=== PATIENT | female | born 1975 | race Caucasian/White ===

== ENCOUNTER 2017-01-11 07:48 | Day surgery (SDC) | payer BC ==
[2017-01-05 09:19] LABS: HEMATOCRIT 44.7 % (36.0-48.0); HEMOGLOBIN 15.2 g/dL (12.0-16.0)
--- NOTE | ~2017-01-11 | OP ---
Record Of Operation [facility] [address] [place]. [address] NAME: HIEN ECHAVARRIA : 71 STATUS : [facility]#: [id number] AGE: 41 ADM/REG DATE : 01/11/17 MR#: [id number] REPORT SERV DATE: 01/11/17 DICTATED BY: MARGARET ESPINOZA DATE: 01/11/17 REPORT STATUS : Draft TRANSCRIBED BY: MODL DATE: 01/11/17 DATE OF PROCEDURE: 01/11/2017 PREOPERATIVE DIAGNOSES: 1. Left cholesteatoma. 2. Left chronic otitis media. POSTOPERATIVE DIAGNOSES: 1. Left cholesteatoma. 2. Left chronic otitis media. PROCEDURES: 1. Left modified radical tympanomastoidectomy, Bondy type IV cholesteatoma. 2. NIM monitoring of cranial nerve 7. SURGEON: Margaret Espinoza M.D. ANESTHESIA: General. COMPLICATIONS: No complications. COUNTS: All counts were correct following the procedure. ESTIMATED BLOOD LOSS: 25 mL. PREOPERATIVE INFORMED CONSENT: We discussed the risks and benefits of surgery to include, but not limited to bleeding, infection, possible CSF leak, possible facial nerve injury resulting in temporary or permanent deficits, possible hearing loss including total deafness, possible recurrence of the cholesteatoma, possible recurrence requiring revision surgery, possible postoperative taste distortion, and consent is on the chart. PROCEDURE IN DETAIL: The patient was brought to the operating suite, placed on the operating room table in the supine position. General endotracheal anesthesia was initiated without incident. Left ear was cleaned and prepped in usual sterile fashion. Following this, postauricular region of the ear canal and tragus were all injected with approximately 6 mL of 1% lidocaine with 1:100,000 epinephrine for hemostasis. Following this through the ear canal, a standard tympanomeatal flap was raised from the 6 o'clock to 12 o'clock position. There was noted a large bulging area of cholesteatoma in the posterior superior aspect of the ear canal. Following lifting the tympanomeatal flap, the cholesteatoma sac was encountered. The tympanomeatal flap was lifted inferiorly and there middle ear space was entered inferiorly and then dissecting superiorly towards the ossicular chain. There was noted be dense scarring in as well as cholesteatoma obstructing the view of the ossicular chain. At this point, it was decided that we convert over to the postauricular approach for better access. A 15 blade scalpel was used to make an incision in the postauricular crease and using Record Of Operation [facility] [address] [place]. [address] NAME: HIEN ECHAVARRIA : 71 STATUS : [facility]#: [id number] AGE: 41 ADM/REG DATE : 01/11/17 MR#: [id number] REPORT SERV DATE: 01/11/17 DICTATED BY: MARGARET ESPINOZA DATE: 01/11/17 REPORT STATUS : Draft TRANSCRIBED BY: MODArabella DATE: 01/11/17 electrocautery sharp dissection was carried out down to the subcutaneous tissues and skin flaps were raised posteriorly as well as anteriorly to the posterior aspect of the ear canal then a prior graft had been obtained from the temporalis, so the temporalis fascia was not available. So, then a T-shaped incision was made in the mastoid fascia. Then, using a Lempert elevator the mastoid fascia was dissected off the underlying mastoid bone and posterior ear canal connecting with the previous tympanomeatal flap incision and self retaining retractors placed in the wound and then using a 3-mm sangita jesus, the atticotomy that already been created by the cholesteatoma was enlarged as noted to be there is already defect in the low lying tegmen in the lateral aspect of the mastoid as well as dissecting medially there was noted to be a superior defect of the tegmen. In a systematic fashion, the cholesteatoma was removed. Piecemeal measured extended significantly back through the antrum into the mastoid cavity. This sequestrum was followed posteriorly using a 3-mm sangita bur. Once the posterior extent of the cholesteatoma had been reached and completely cleared following anteriorly using the NIM stimulator, the facial nerve was identified and its tympanic segment appeared to be covered by bone. There was still a remnant left of the head of the malleus as well as the body of the incus, but it was significantly eroded, that was noted to be fixed and adherent to the surrounding bony structures was left in place. There was noted to be extensive fibrosis and scarring around the chorda tympani nerve was carefully teased away toward the fibrous tissue and scarring was carefully teased away from the chorda tympani nerve using a Parham needle. Once the entire mastoid cavity been extirpated of cholesteatoma, the graft made of lyophilized porcine dura was obtained this was cut to size and was a bleed down into the mastoid cavity and draped over the dural defect. The dural defects as well as draped over the mastoid defect then the tympanomeatal flap was laid back down into its anatomic position. Then the lateral aspect of the pars tensa as well as the graft were covered with Gelfoam out to the lateral aspect of the ear canal and attention was taken to the meatus for meatoplasty. 15 blade scalpel used to make an incision at the 1 o'clock and the 5 o'clock position of the ear canal and then this was dissected posteriorly where a generous meatoplasty was performed using a 15 blade scalpel and curved iris scissors. The mastoid fascia was reapproximated using 3-0 Vicryl followed by meatoplasty skin flap was sutured to the subcutaneous tissues. The postauricular incision was closed using 3-0 Vicryl as well as 3-0 chromic followed by filling of the mastoid cavity using further Gelfoam followed by bacitracin and a standard mastoid dressing. The patient was then awakened from anesthesia, extubated, and taken to the recovery room in stable condition. MALGORZATA/RYLAND Margaret Espinoza M.D. / [id number] CC: Margaret Espinoza M.D. Record Of Operation [address] [address] NAME: HIEN ECHAVARRIA : 71 STATUS : [facility] PAT#: [id number] AGE: 41 ADM/REG DATE : 01/11/17 MR#: [id number] REPORT SERV DATE: 01/11/17 DICTATED BY: MARGARET ESPINOZA DATE: 01/11/17 REPORT STATUS : Draft TRANSCRIBED BY: ROSAL DATE: 01/11/17 Bahman Worley M.D.
[~2017-01-11 07:48] MED LIST: ADVIL PO; CLARIT10 PO; ESTRACE; ESTRADIOL1 MG PO; T PO
== END 2017-01-11 19:10 | disposition home or self-care (01) ==
LOC: SDC 07:48
PROVIDERS: Otolaryngology
PROC: 0NR607Z Replacement of Left Temporal Bone with Autologous Tissue Substitute, Open Approach (ICD-10-PCS; principal; 2017-01-11 09:30)
DX: H60.42 Cholesteatoma of left external ear (principal); H66.92 Otitis media, unspecified, left ear; I95.9 Hypotension, unspecified; E78.5 Hyperlipidemia, unspecified; E78.00 Pure hypercholesterolemia, unspecified; G43.809 Other migraine, not intractable, without status migrainosus; K21.9 Gastro-esophageal reflux disease without esophagitis; H52.209 Unspecified astigmatism, unspecified eye; L40.9 Psoriasis, unspecified; F17.210 Nicotine dependence, cigarettes, uncomplicated; Z98.890 Other specified postprocedural states; Z98.51 Tubal ligation status; Z79.899 Other long term (current) drug therapy
CPT/HCPCS: 84703; 85014; 85018; 88304; 88305; A9270-GY; C1763; J0690; J2250; J2370; J2405; J2550; J2710; J3010